=== PATIENT | female | born 1995 ===

== ENCOUNTER 2017-04-21 12:44 | Emergency (ER) | payer BC, OTHER ==
[2017-04-21 12:48] VITALS: O2SAT 100
[2017-04-21 13:52] LABS: RBC URINE 4 /hpf (0-3); URINE BILIRUBIN NEGATIVE (NEGATIVE); URINE BLOOD 1+ (NEGATIVE); URINE COLOR Yellow (YELLOW); URINE GLUCOSE (UA) NORMAL (Normal); URINE KETONE NEGATIVE (NEGATIVE); URINE LEUKOCYTE ESTERASE NEG Leu/uL (Negative); URINE PROTEIN NEGATIVE (NEGATIVE); URINE UROBILINOGEN NORMAL mg/dL (0.2-1.0); WBC URINE 1 /hpf (0-5)
--- NOTE | 2017-04-21 14:10 | C.PDOC ---
History Of Present Illness 21 yr old female presents to the ER with complaints of superpubic abdominal pain for the past 3-4 days. Patient states the pain radiates to lower back and is associated with frequent urination. Denies fever, nausea, vomiting, diarrhea , constipation, dysuria, hematuria, weakness or numbness. Time Seen by Provider: 04/21/17 12:50 Chief Complaint (Nursing): Abdominal Pain History Per: Patient History/Exam Limitations: no limitations Onset/Duration Of Symptoms: Days (3-4) Past Medical History Reviewed: Historical Data, Nursing Documentation, Vital Signs Vital Signs: Last Vital Signs Temp 97.8 F 04/21/17 14:50 Pulse 65 04/21/17 14:50 Resp 12 04/21/17 14:50 BP 92/60 L 04/21/17 14:50 Pulse Ox 100 04/21/17 14:50 Family History: States: No Known Family Hx - Social History Hx Tobacco Use: No Hx Alcohol Use: No Hx Substance Use: No - Immunization History Hx Tetanus Toxoid Vaccination: No Hx Influenza Vaccination: No Hx Pneumococcal Vaccination: No Review Of Systems Except As Marked, All Systems Reviewed And Found Negative. Constitutional: Negative for: Fever Gastrointestinal: Positive for: Abdominal Pain (Superpubic ). Negative for: Nausea, Vomiting, Diarrhea, Constipation Genitourinary: Positive for: Frequency (Urination ). Negative for: Dysuria, Hematuria Neurological: Negative for: Weakness, Numbness Physical Exam - Physical Exam Appears: Non-toxic, No Acute Distress Skin: Warm, Dry, No Rash Head: Atraumatic, Normacephalic Eye(s): bilateral: Normal Inspection Oral Mucosa: Moist Neck: Normal, Normal ROM, Supple Chest: Symmetrical, No Tenderness Cardiovascular: Rhythm Regular, No Friction Rub, No Murmur Respiratory: Normal Breath Sounds, No Rales, No Rhonchi, No Stridor, No Wheezing Gastrointestinal/Abdominal: Bowel Sounds (active), Soft, Tenderness (Superpubic ), No Guarding, No Rebound Back: Normal Inspection, No CVA Tenderness Pelvic: No Vaginal Bleeding, Vaginal Discharge (foul smelling yellow discharge) , No Cervical Motion Tenderness, No Adnexal Tenderness Extremity: Normal ROM, No Swelling Neurological/Psych: Oriented x3, Normal Speech, Normal Motor ED Course And Treatment O2 Sat by Pulse Oximetry: 100 (RA ) Pulse Ox Interpretation: Normal Medical Decision Making Medical Decision Making: PLAN: * HCG * Urinalysis Patient was found to have discharge on the pelvic exam. Will treat with antibiotics. Disposition - Disposition Referrals: Sowmya Hung MD [Medical Doctor] - Disposition: HOME/ ROUTINE Disposition Time: 14:40 Condition: GOOD Additional Instructions: Follow up with the medical doctor within 1-2 days. Return if worsened. 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 - Scribe Statement The provider has reviewed the documentation as recorded by the Scribe Karlie Rodriguez All medical record entries made by the Scribe were at my direction and personally dictated by me. I have reviewed the chart and agree that the record accurately reflects my personal performance of the history, physical exam, medical decision making, and the department course for this patient. I have also personally directed, reviewed, and agree with the discharge instructions and disposition.
[2017-04-21] MEDS ORDERED: cefTRIAXone (Rocephin) 250 mg Inj IM STA (14:42)
[2017-04-21 14:56] VITALS: BP 92/60; PULSE 65; RESP 12; TEMP 97.8
== END 2017-04-21 15:26 | disposition home or self-care (01) ==
LOC: C.ER 12:44
DX: N76.0 Acute vaginitis (principal)
CPT/HCPCS: 81001; 84703; 87086; 96372; 99284; J0696